=== PATIENT | female | born 1955 | race Caucasian/White ===

== ENCOUNTER 2017-10-04 03:33 | Emergency (ER) | payer BC ==
--- NOTE | 2017-10-04 04:20 | EDM.PDOC ---
<Luis Carlos Grayson - Last Filed: 10/04/17 06:55> ED HPI GENERAL MEDICAL PROBLEM - General Chief Complaint: Respiratory Problem Stated Complaint: DIFFICULTY BREATHING Time Seen by Provider: 10/04/17 03:49 Source of Information: Reports: Patient History Limitations: Reports: No Limitations - History of Present Illness INITIAL COMMENTS - FREE TEXT/NARRATIVE: The patient states that she has had a dry cough on and off for the past 6 weeks. She has not had a fever. No chest pain, palpitations, nausea, vomiting, constipation, or diarrhea. Since that she has been seen at the clinic on 2 occasions, and was prescribed antibiotics both times. A chest x-ray did not find an infiltrate, but did show a "spot" on the lung. The patient was prescribed an albuterol MDI at her second visit about a month ago, and was instructed to use it whenever she coughed. She has been doing that, with no notable improvement in her symptoms. The patient states that she woke around 03:00 this morning with shortness of breath. She states that she had difficulty breathing both in and out. She used her albuterol MDI 3 times, then went outside. Her symptoms resolved within a few minutes. The patient works at [employer], and is exposed to flour dust in the air. She states that she has been working there for about 10 years, under the same conditions. She states that she wears a mask at work, although it is just a facial mask, not a respirator. The patient does not have a PCP. She does not recall when her last general physical exam was. - Related Data Allergies Allergy/AdvReac Type Severity Reaction Status Date / Time codeine Allergy Difficulty Verified 10/04/17 03:42 Breathing peanut Allergy Difficulty Verified 10/04/17 03:42 Breathing tramadol [From Ultram] Allergy Difficulty Verified 10/04/17 03:42 Breathing Home Meds: Home Meds Albuterol [Proventil HFA] 2 inh INH Q4H PRN 10/04/17 [History] Aspirin 81 mg PO DAILY 10/04/17 [History] Benzonatate [Tessalon Perle] 100 mg PO TID PRN #30 capsule 10/04/17 [Rx] Cetirizine [ZyrTEC] 10 mg PO DAILY #30 tab 10/04/17 [Rx] Past Medical History Respiratory History: Reports: PE (, when the patient was in her 20s) - Past Surgical History GI Surgical History: Reports: Lysis of Adhesions Social & Family History - Tobacco Use Smoking Status *Q: Former Smoker Years of Tobacco use: 20 Packs/Tins Daily: 1 Month/Year Tobacco Last Used: "long time ago" - Alcohol Use Alcohol Use History: Yes Alcohol Use Frequency: Socially - Recreational Drug Use Recreational Drug Use: No - Living Situation & Occupation Living situation: Reports: , Alone Occupation: Employed ([employer]) ED ROS GENERAL - Review of Systems Review Of Systems: ROS reveals no pertinent complaints other than HPI. ED EXAM, GENERAL - Physical Exam Exam: See Below Exam Limited By: No Limitations General Appearance: Alert, WD/WN, No Apparent Distress Eye Exam: Bilateral Eye: Normal Inspection Ears: Normal External Exam, Normal Canal, Hearing Grossly Normal, Normal TMs Nose: Normal Inspection, Normal Mucosa, No Blood Throat/Mouth: Normal Inspection, Normal Lips, Normal Teeth, Normal Gums, Normal Voice, No Airway Compromise, Other (Pharyngeal streaking, consistent with postnasal drip) Head: Atraumatic, Normocephalic Neck: Normal Inspection, Supple, Non-Tender, Full Range of Motion. No: Lymphadenopathy (L), Lymphadenopathy (R) Respiratory/Chest: No Respiratory Distress, Lungs Clear, Normal Breath Sounds, No Accessory Muscle Use. No: Decreased Breath Sounds, Crackles, Rhonchi, Wheezing, Prolonged Expiration Cardiovascular: Normal Peripheral Pulses, Regular Rate, Rhythm, No Edema, No Gallop, No JVD, No Murmur, No Rub Peripheral Pulses: 4+: Radial (L), Radial (R) GI/Abdominal: Normal Bowel Sounds, Soft, Non-Tender, No Organomegaly, No Distention, No Abnormal Bruit, No Mass (Female) Exam: Deferred Rectal (Female) Exam: Deferred Back Exam: Normal Inspection, Full Range of Motion, NT Extremities: Normal Inspection, Normal Range of Motion, No Pedal Edema, Normal Capillary Refill Neurological: Alert, Oriented, Normal Cognition, No Motor/Sensory Deficits Psychiatric: Normal Affect Skin Exam: Warm, Dry, Intact, Normal Color, No Rash Course - Vital Signs Last Recorded V/S: Last Vital Signs Temp 36.4 C 10/04/17 03:37 Pulse 88 10/04/17 03:37 Resp 18 10/04/17 03:37 BP 148/87 H 10/04/17 03:37 Pulse Ox 98 10/04/17 03:37 - Orders/Labs/Meds Labs: Laboratory Tests 10/04/17 10/04/17 10/04/17 Range/Units 04:30 04:30 04:30 WBC 8.00 (3.98-10.04) K/mm3 RBC 4.46 (3.98-5.22) M/mm3 Hgb 13.6 (11.2-15.7) gm/L Hct 40.6 (34.1-44.9) % MCV 91.0 (79.4-94.8) fl MCH 30.5 (25.6-32.2) pg MCHC 33.5 (32.2-35.5) g/dl RDW Std Deviation 44.1 (36.4-46.3) fL Plt Count 318 (182-369) K/mm3 MPV 9.9 (9.4-12.3) fl Neutrophils % (Manual) 73 H (40-60) % Band Neutrophils % 0 (0-10) % Lymphocytes % (Manual) 21 (20-40) % Atypical Lymphs % 0 % Monocytes % (Manual) 5 (2-10) % Eosinophils % (Manual) 1 (0.7-5.8) % Basophils % (Manual) 0 L (0.1-1.2) Platelet Estimate Adequate RBC Morph Comment Normal PT (9.5-12.1) SECONDS INR APTT 23 L (24-31) SECONDS D-Dimer, Quantitative 1.41 H (0.19-0.50) mg/L Sodium 141 (136-145) mEq/L Potassium 4.6 (3.5-5.1) mEq/L Chloride 106 (98-107) mEq/L Carbon Dioxide 25 (21-32) mEq/L Anion Gap 14.6 (5-15) BUN 16 (7-18) mg/dL Creatinine 0.9 (0.55-1.02) mg/dL Est Cr Clr Drug Dosing 49.53 mL/min Estimated GFR (MDRD) > 60 (>60) mL/min BUN/Creatinine Ratio 17.8 (14-18) Glucose 118 H (80-115) mg/dL Calcium 9.3 (8.5-10.1) mg/dL Total Bilirubin 0.5 (0.2-1.0) mg/dL AST 13 L (15-37) U/L ALT 22 (14-59) U/L Alkaline Phosphatase 90 (46-116) U/L Total Protein 7.5 (6.4-8.2) g/dl Albumin 3.9 (3.4-5.0) g/dl Globulin 3.6 gm/dL Albumin/Globulin Ratio 1.1 (1-2) 10/04/17 Range/Units 04:30 WBC (3.98-10.04) K/mm3 RBC (3.98-5.22) M/mm3 Hgb (11.2-15.7) gm/L Hct (34.1-44.9) % MCV (79.4-94.8) fl MCH (25.6-32.2) pg MCHC (32.2-35.5) g/dl RDW Std Deviation (36.4-46.3) fL Plt Count (182-369) K/mm3 MPV (9.4-12.3) fl Neutrophils % (Manual) (40-60) % Band Neutrophils % (0-10) % Lymphocytes % (Manual) (20-40) % Atypical Lymphs % % Monocytes % (Manual) (2-10) % Eosinophils % (Manual) (0.7-5.8) % Basophils % (Manual) (0.1-1.2) Platelet Estimate RBC Morph Comment PT 10.0 (9.5-12.1) SECONDS INR 0.92 APTT (24-31) SECONDS D-Dimer, Quantitative (0.19-0.50) mg/L Sodium (136-145) mEq/L Potassium (3.5-5.1) mEq/L Chloride (98-107) mEq/L Carbon Dioxide (21-32) mEq/L Anion Gap (5-15) BUN (7-18) mg/dL Creatinine (0.55-1.02) mg/dL Est Cr Clr Drug Dosing mL/min Estimated GFR (MDRD) (>60) mL/min BUN/Creatinine Ratio (14-18) Glucose (80-115) mg/dL Calcium (8.5-10.1) mg/dL Total Bilirubin (0.2-1.0) mg/dL AST (15-37) U/L ALT (14-59) U/L Alkaline Phosphatase (46-116) U/L Total Protein (6.4-8.2) g/dl Albumin (3.4-5.0) g/dl Globulin gm/dL Albumin/Globulin Ratio (1-2) Meds: Medications Discontinued Medications Generic Name Dose Route Start Last Admin Trade Name Margarito PRN Reason Stop Dose Admin Dexamethasone 10 mg 10/04/17 08:15 10/04/17 08:31 Dexamethasone PO 10/04/17 08:16 10 mg ONETIME ONE Administration Sodium Chloride 1,000 mls @ 150 mls/hr 10/04/17 05:45 10/04/17 05:58 Normal Saline IV 150 mls/hr ASDIRECTED MYRON Administration Sodium Chloride 100 mls @ 4 mls/sec 10/04/17 06:15 10/04/17 06:33 Normal Saline IV 10/04/17 06:16 4 mls/sec ONETIME ONE Administration Iopamidol 100 ml 10/04/17 06:15 10/04/17 06:32 Isovue-370 (76%) IVPUSH 10/04/17 06:16 100 ml ONETIME ONE Administration - Re-Assessments/Exams Free Text/Narrative Re-Assessment/Exam: 10/04/17 04:13 As the patient has been seen at the clinic on 2 occasions, with a recent chest radiograph that did not find infiltrate, and was nevertheless treated with 2 rounds of antibiotics, and her current pulmonary exam is entirely normal, and the patient is saturating 98% on room air, I do not see an indication for a repeat chest radiograph at this time. I have, however, ordered blood work that includes a D-dimer. If elevated, a CT angiogram of the chest may be indicated. If her bloodwork is entirely negative, then I suspect that her symptoms are due to allergic rhinitis with postnasal drip. In that case, I would recommend a nasal steroid spray. 10/04/17 05:45 The patient's D-dimer has returned significantly elevated at 1.41, despite normal renal function. I have ordered a CT angiogram of the chest to evaluate for PE, as well as IV fluid. 10/04/17 07:00 The patient has undergone the CT angiogram, however, the results are still pending. Case discussed with Dr. Lg Cortes, and care of the patient turned over to her at this time, for change of shift. Departure - Departure Disposition: Home, Self-Care 01 Clinical Impression: Cough - Discharge Information Prescriptions: Benzonatate [Tessalon Perle] 100 mg PO TID PRN #30 capsule PRN Reason: Cough Cetirizine [ZyrTEC] 10 mg PO DAILY #30 tab Instructions: Cough, Adult, [id number] Referrals: PCP,Unknown [Ordering Only Provider] - Forms: ED Department Discharge Additional Instructions: 1. Take cetirizine or Janette daily 2. Take tessalon as prescribed as needed for cough 3. Use albuterol inhaler as needed for shortness of breath or cough 4. Follow up with the primary care provider of your choice as soon as possible for further care. Call [phone] if you'd like to schedule with someone here. 5. Return to the Emergency Department if you have difficulty breathing, chest pain, or any other concerning symptoms <Lg Cortes A - Last Filed: 10/04/17 13:17> Course - Re-Assessments/Exams Free Text/Narrative Re-Assessment/Exam: 10/04/17 13:15 CTA chest is negative for PE or other acute abnormality. Reassessed patient. She is breathing comfortably and is completely well appearing and has normal vital signs. She'd like to go home. Discussed return precautions. Departure - Departure Time of Disposition: 08:13
[2017-10-04] MEDS ORDERED: Sodium Chloride 0.9% 1,000 ML IV SCH (05:45)
[2017-10-04] MEDS ORDERED: Sodium Chloride 0.9% 100 ML IV ONE (06:15)
[2017-10-04] MEDS ORDERED: Iopamidol 755 Mg/ML 100 ML Bottle IVPUSH ONE (06:15)
[2017-10-04] MEDS ORDERED: Dexamethasone 4 MG Tab PO ONE (08:15)
--- NOTE | 2017-10-04 10:24 | CT ---
CT chest Technique: Multiple axial sections through the chest were obtained. Intravenous contrast was utilized. Comparison: No previous study. Findings: Pulmonary arteries are well-opacified. No filling defects are seen to indicate pulmonary embolism. Mediastinum and hilar region show no adenopathy or mass. No pericardial thickening is seen. Slightly dilated renal pelves are seen on both sides most likely due to nonvisualized but incidental functional UPJ obstructions. Lungs are clear with no acute parenchymal change. No pleural effusions are seen. Bone window settings shows mild degenerative spurring within the spine. No acute osseous abnormality is identified. Impression: 1. No findings of pulmonary embolism. 2. Other incidental findings as described above. Diagnostic code #2 Agree with preliminary report issued by [facility] ([facility] preliminary report dictated on 10/04/17, 8:48 AM Central Time)
== END 2017-10-04 08:41 | disposition home or self-care (01) ==
LOC: JD.ED 03:33
DX: R05 Cough (principal); Z88.5 Allergy status to narcotic agent; Z91.010 Allergy to peanuts; Z79.82 Long term (current) use of aspirin; Z79.899 Other long term (current) drug therapy; Z87.891 Personal history of nicotine dependence
CPT/HCPCS: 36415; 71275; 80053; 85025; 85379; 85610; 85730; 96360; 96361; 99285; J7030; J7040; J8540; Q9967; 99284

== ENCOUNTER 2017-10-05 17:10 | Emergency (ER) | payer BC ==
[2017-10-05] MEDS ORDERED: Albuterol 0.083% 2.5 MG/3 ML Neb Soln NEB ONE (17:43)
--- NOTE | 2017-10-05 18:43 | EDM.PDOC ---
ED HPI GENERAL MEDICAL PROBLEM - General Chief Complaint: Cardiovascular Problem Stated Complaint: [facility] SENT HER Time Seen by Provider: 10/05/17 17:28 Source of Information: Reports: Patient, RN Notes Reviewed - History of Present Illness INITIAL COMMENTS - FREE TEXT/NARRATIVE: 62 year old female referred to ED with concern about possible pneumonia and elevated trop. She was seen here in the ED yesterday for cough, dyspne, see that record for details. She had labs, had a CT pul angio for elevated D Dimer which was neg. See that record for details. Was seen at clinic this afternoon for follow up. Still coughing, occasional productive of colored phlegm which she has had for 1 to 2 months, 2 prior courses of abx. A D Dimer along with other labs today was elevated at 0.06. She has had no chest pain other than that associated with coughing. No Hx CAD, does not smoke, no recent fever or chills. No hx CAD, diabetes or known renal problems. - Related Data Allergies Allergy/AdvReac Type Severity Reaction Status Date / Time codeine Allergy Difficulty Verified 10/05/17 17:19 Breathing peanut Allergy Difficulty Verified 10/05/17 17:19 Breathing tramadol [From Ultram] Allergy Difficulty Verified 10/05/17 17:19 Breathing Home Meds: Home Meds Albuterol [Proventil HFA] 2 inh INH Q4H PRN 10/04/17 [History] Aspirin 81 mg PO DAILY 10/04/17 [History] Benzonatate [Tessalon Perle] 100 mg PO TID PRN #30 capsule 10/04/17 [Rx] Cetirizine [ZyrTEC] 10 mg PO DAILY #30 tab 10/04/17 [Rx] Doxycycline [Vibramycin] 100 mg PO DAILY #20 tab 10/05/17 [Rx] Past Medical History - Past Health History Medical/Surgical History: Denies Medical/Surgical History HEENT History: Reports: Impaired Vision Other HEENT History: wears eyeglasses Respiratory History: Reports: PE Gastrointestinal History: Reports: Other (See Below) Other Gastrointestinal History: laproscopic surgery. Genitourinary History: Reports: Other (See Below) Other Genitourinary History: prolaped bladder [employer] History: Reports: Musculoskeletal History: Reports: Fracture Neurological History: Reports: MS - Infectious Disease History Infectious Disease History: Reports: Measles - Past Surgical History GI Surgical History: Reports: Lysis of Adhesions Social & Family History - Tobacco Use Smoking Status *Q: Never Smoker Second Hand Smoke Exposure: No - Caffeine Use Caffeine Use: Reports: Coffee, Soda - Recreational Drug Use Recreational Drug Use: No - Living Situation & Occupation Living situation: Reports: , Alone Occupation: Employed ([employer]) ED ROS GENERAL - Review of Systems Review Of Systems: See Below Constitutional: Denies: Fever, Chills, Diaphoresis HEENT: Reports: Sinus Problem (has had a lot of sinus miguel angel, post nasal drainage) Respiratory: Reports: Shortness of Breath (severe yesterday morning, better today, still feels short of breath compared to normal), Wheezing, Cough, Sputum (yellow, green) Cardiovascular: Reports: Chest Pain (with coughing only) GI/Abdominal: Denies: Abdominal Pain, Nausea, Vomiting Musculoskeletal: Denies: Neck Pain, Shoulder Pain, Arm Pain, Back Pain Skin: Reports: No Symptoms Neurological: Reports: No Symptoms ED EXAM, GENERAL - Physical Exam Exam: See Below General Appearance: Alert, No Apparent Distress Eye Exam: Bilateral Eye: PERRL Throat/Mouth: Normal Inspection, Normal Oropharynx Head: Atraumatic. No: Facial Swelling, Facial Tenderness Neck: Supple, Full Range of Motion, Other (no JVD) Respiratory/Chest: No Respiratory Distress, Lungs Clear, Wheezing (mild). No: Rales, Rhonchi Cardiovascular: Regular Rate, Rhythm GI/Abdominal: Soft, Non-Tender Back Exam: No: CVA Tenderness (L), CVA Tenderness (R) Extremities: Normal Inspection. No: Pedal Edema, Leg Pain, Increased Warmth, Redness Neurological: Alert, Oriented, No Motor/Sensory Deficits Skin Exam: Warm, Dry, Normal Color Course - Vital Signs Last Recorded V/S: Last Vital Signs Temp 97.8 F 10/05/17 17:19 Pulse 64 10/05/17 17:19 Resp 18 10/05/17 17:19 BP 149/86 H 10/05/17 17:19 Pulse Ox 95 10/05/17 18:06 - Orders/Labs/Meds Orders: Active Orders 24 hr Category Date Time Status RT Aerosol Therapy [RC] ASDIRECTED Care 10/05/17 17:44 Active Labs: Laboratory Tests 10/05/17 Range/Units 18:35 Troponin I 0.049 (0.00-0.056) ng/mL Meds: Medications Discontinued Medications Generic Name Dose Route Start Last Admin Trade Name Margarito PRN Reason Stop Dose Admin Albuterol 2.5 mg 10/05/17 17:43 10/05/17 18:05 Proventil Neb Soln NEB 10/05/17 17:44 2.5 mg ONETIME ONE Administration Doxycycline Hyclate 100 mg 10/05/17 20:40 10/05/17 20:44 Vibramycin PO 10/05/17 20:41 100 mg ONETIME ONE Administration Prednisone 40 mg 10/05/17 20:39 10/05/17 20:44 Prednisone PO 10/05/17 20:40 40 mg ONETIME ONE Administration - Re-Assessments/Exams Free Text/Narrative Re-Assessment/Exam: 10/05/17 22:10 Neb treatment did help her breathing, sats running 100 percent room air after neb treatment. CXR done at clinic reviewed, it is normal, no infiltrate, cardiomegally, pul congestion or other apparent acute finding. Repeat trop 2 hr after clinic draw came back at .049. With her ongoing bronchitis, sinusitis I am going to prescribe a course of doxycycline, have her take 6 days of prednisone. Have advised her and family this could take 1-2 weeks or more to clear but sx of cough and sinus miguel angel should gradually get better and difficulty breathing should continue to improve quite rapidly. Discharge instr. as documented. Departure - Departure Time of Disposition: 20:54 Disposition: Home, Self-Care 01 Condition: Fair Clinical Impression: Bronchitis, Wheezing-associated respiratory infection Sinusitis Qualifiers: Sinusitis location: maxillary Chronicity: acute Recurrence: non-recurrent Qualified Code(s): J01.00 - Acute maxillary sinusitis, unspecified Prescriptions: Doxycycline [Vibramycin] 100 mg PO DAILY #20 tab Instructions: Acute Bronchitis, Adult Referrals: Sandra Montgomery PA-C [Primary Care Provider] - Forms: ED Department Discharge Additional Instructions: vaporizer or steam as needed, continue to use inhaler at home 3 to 4 times daily, prednisone 40 mg q AM for 3 days than 20 mg q AM for 2 days, doxycycline 100 mg twice daily for 10 days. continue other medications as previously prescribed. Follow up clinic in about 1 week for recheck, return to ED as needed if symptoms worsening in any way. - My Orders Last 24 Hours: My Active Orders 10/05/17 17:44 RT Aerosol Therapy [RC] ASDIRECTED - Assessment/Plan Last 24 Hours: My Active Orders 10/05/17 17:44 RT Aerosol Therapy [RC] ASDIRECTED
[2017-10-05] MEDS ORDERED: predniSONE 20 MG Tab PO ONE (20:39)
[2017-10-05] MEDS ORDERED: Doxycycline 100 MG Cap PO ONE (20:40)
== END 2017-10-05 21:12 | disposition home or self-care (01) ==
LOC: JD.ED 17:10
DX: J40 Bronchitis, not specified as acute or chronic (principal); J01.00 Acute maxillary sinusitis, unspecified; Z88.5 Allergy status to narcotic agent; Z91.010 Allergy to peanuts; Z79.82 Long term (current) use of aspirin; Z79.899 Other long term (current) drug therapy
CPT/HCPCS: 36415; 84484; 94640; 99285; A9270; 99283

== ENCOUNTER 2019-06-29 14:53 | Emergency (ER) | payer BC ==
[2019-06-29] MEDS ORDERED: HYDROmorphone 0.5 MG/0.5 ML Syringe IVPUSH ONE (15:45)
[2019-06-29] MEDS ORDERED: Ondansetron 4 MG/2 ML SDV IVPUSH ONE ×2 (15:45→20:04)
[2019-06-29] MEDS ORDERED: Dexamethasone 10 MG/ML SDV IM ONE (15:45)
[2019-06-29] MEDS ORDERED: Sodium Chloride 0.9% 1,000 ML IV ONE (15:48)
--- NOTE | 2019-06-29 16:01 | EDM.PDOC ---
ED HPI GENERAL MEDICAL PROBLEM - General Chief Complaint: Neck Problem Stated Complaint: HEADACHE/SWOLLEN GLANDS Time Seen by Provider: 06/29/19 15:16 Source of Information: Reports: Patient, RN Notes Reviewed History Limitations: Reports: No Limitations - History of Present Illness INITIAL COMMENTS - FREE TEXT/NARRATIVE: Patient is a 64-year-old female who presents to the ED for the evaluation of a headache, and ongoing swelling in her face and throat. Patient notes she was seen in the clinic on 06/27/2019 for sore tooth on the bottom left side of her mouth. She states she was given a prescription for Augmentin, and has taken it as prescribed, but she is now developed a sore throat, sore jaw, swollen lymph nodes to the left side of her neck, and severe neck pain. She also states that she has been having a headache and has not been able to really eat or sleep much for the last 2 days due to the swelling and pain. She denies any fever, vomiting, diarrhea or nausea. Patient's not been told she is ever had any sort of issues with her thyroid. Neck Pain Score (Numeric/FACES): 3 - Related Data Allergies Allergy/AdvReac Type Severity Reaction Status Date / Time codeine Allergy Difficulty Verified 10/05/17 17:19 Breathing peanut Allergy Difficulty Verified 10/05/17 17:19 Breathing tramadol [From Ultram] Allergy Difficulty Verified 10/05/17 17:19 Breathing Home Meds: Home Meds Albuterol [Proventil HFA] 2 inh INH Q4H PRN 10/04/17 [History] Aspirin 81 mg PO DAILY 10/04/17 [History] Benzonatate [Tessalon Perle] 100 mg PO TID PRN #30 capsule 10/04/17 [Rx] Cetirizine [ZyrTEC] 10 mg PO DAILY #30 tab 10/04/17 [Rx] Doxycycline [Vibramycin] 100 mg PO DAILY #20 tab 10/05/17 [Rx] Past Medical History - Past Health History Medical/Surgical History: Denies Medical/Surgical History HEENT History: Reports: Impaired Vision Other HEENT History: wears eyeglasses Cardiovascular History: Reports: High Cholesterol Respiratory History: Reports: Asthma, PE Gastrointestinal History: Reports: Other (See Below) Other Gastrointestinal History: laproscopic surgery. 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: Musculoskeletal History: Reports: Back Pain, Chronic, Fracture Neurological History: Reports: MS - Infectious Disease History Infectious Disease History: Reports: Chicken Pox, Measles - Past Surgical History GI Surgical History: Reports: Lysis of Adhesions Social & Family History - Family History Family Medical History: Noncontributory - Tobacco Use Smoking Status *Q: Former Smoker Packs/Tins Daily: 15 Used Tobacco, but Quit: Yes Month/Year Tobacco Last Used: 30 yrs ago - Caffeine Use Caffeine Use: Reports: Coffee - Recreational Drug Use Recreational Drug Use: No - Living Situation & Occupation Living situation: Reports: , Alone Occupation: Employed ([employer]) ED ROS GENERAL - Review of Systems Review Of Systems: See Below Constitutional: Denies: Fever, Chills HEENT: Reports: Dental Pain (Left lower jaw), Ear Pain (L ear fullness), Throat Pain, Throat Swelling (L side throat swelling) Respiratory: Denies: Shortness of Breath Cardiovascular: Denies: Chest Pain GI/Abdominal: Denies: Abdominal Pain, Nausea, Vomiting Musculoskeletal: Reports: Neck Pain (Left neck pain) Neurological: Reports: Headache ED EXAM, GENERAL - Physical Exam Exam: See Below Exam Limited By: No Limitations General Appearance: Alert, WD/WN, No Apparent Distress Eye Exam: Bilateral Eye: EOMI, Normal Inspection, PERRL Ears: Normal External Exam, Normal Canal, Hearing Grossly Normal, Normal TMs Nose: Normal Inspection Throat/Mouth: Normal Inspection, Normal Lips, Normal Teeth, Normal Gums, Normal Oropharynx, Normal Voice, No Airway Compromise Head: Atraumatic, Normocephalic Neck: Supple, Limited Range of Motion (d/t pain), Tender Lateral (anteriorly, there is obvious swelling/lump noted to her L anterior neck). No: Lymphadenopathy (L), Lymphadenopathy (R) Respiratory/Chest: No Respiratory Distress, Lungs Clear, Normal Breath Sounds, No Accessory Muscle Use, Chest Non-Tender Cardiovascular: Normal Peripheral Pulses, Regular Rate, Rhythm, No Edema, No Murmur Peripheral Pulses: 3+: Radial (L), Radial (R) Extremities: Normal Inspection, Normal Capillary Refill Neurological: Alert, Oriented, Normal Cognition, No Motor/Sensory Deficits Psychiatric: Normal Affect, Normal Mood Skin Exam: Warm, Dry, Intact, Normal Color, No Rash Course - Vital Signs Last Recorded V/S: Last Vital Signs Temp 99.7 F 06/29/19 15:09 Pulse 95 06/29/19 17:06 Resp 16 06/29/19 15:09 BP 111/61 06/29/19 17:06 Pulse Ox 97 06/29/19 17:06 - Orders/Labs/Meds Orders: Active Orders 24 hr Category Date Time Status Peripheral IV Care [RC] . DIRECTED Care 06/29/19 15:43 Ordered CULTURE STREP A CONFIRMATION [] Stat Lab 06/29/19 16:05 Results STREP SCRN A RAPID W CULT CONF [] Stat Lab 06/29/19 15:43 Ordered Clindamycin Phosphate in D5W [Cleocin in D5W] 900 mg Med 06/29/19 18:54 Ordered Premix Bag 1 bag IV ONETIME Heparin Sodium/D5W [Heparin 25,000 Units in D5W 500 ML] Med 06/29/19 17:53 Ordered 25,000 units in 500 ml IV TITRATE Sodium Chloride 0.9% [Saline Flush] Med 06/29/19 15:43 Ordered 10 ml FLUSH ASDIRECTED PRN Peripheral IV Insertion Adult [OM.PC] Stat Oth 06/29/19 15:43 Ordered Medication Orders Heparin Sodium/Dextrose (Heparin 25,000 Units In D5w 500 Ml) 25,000 units in 500 mls @ 17.146 mls/hr IV TITRATE ONE; Protocol Stop: 06/30/19 23:02 Last Admin: 06/29/19 18:06 Dose: 15 units/kg/hr, 17.146 mls/hr Sodium Chloride (Saline Flush) 10 ml FLUSH ASDIRECTED PRN PRN Reason: Keep Vein Open Last Admin: 06/29/19 18:06 Dose: 10 ml Admin: 06/29/19 16:47 Dose: 10 ml Labs: Laboratory Tests 06/29/19 06/29/19 06/29/19 Range/Units 16:10 16:10 16:10 WBC 11.61 H (3.98-10.04) K/mm3 RBC 4.18 (3.98-5.22) M/mm3 Hgb 12.6 (11.2-15.7) gm/dl Hct 37.8 (34.1-44.9) % MCV 90.4 (79.4-94.8) fl MCH 30.1 (25.6-32.2) pg MCHC 33.3 (32.2-35.5) g/dl RDW Std Deviation 42.8 (36.4-46.3) fL Plt Count 439 H D (182-369) K/mm3 MPV 9.3 L (9.4-12.3) fl Neutrophils % (Manual) 67 H (40-60) % Band Neutrophils % 1 (0-10) % Lymphocytes % (Manual) 21 (20-40) % Atypical Lymphs % 4 % Monocytes % (Manual) 7 (2-10) % Eosinophils % (Manual) 0 L (0.7-5.8) % Basophils % (Manual) 0 L (0.1-1.2) Toxic Granulation Few Platelet Estimate Adequate RBC Morph Comment Normal PT 10.7 (9.7-12.0) SECONDS INR 0.98 APTT 30 D (22-31) SECONDS Sodium 134 L (136-145) mEq/L Potassium 3.9 (3.5-5.1) mEq/L Chloride 99 (98-107) mEq/L Carbon Dioxide 23 (21-32) mEq/L Anion Gap 15.9 H (5-15) BUN 11 (7-18) mg/dL Creatinine 0.9 (0.55-1.02) mg/dL Est Cr Clr Drug Dosing 48.28 mL/min Estimated GFR (MDRD) > 60 (>60) mL/min BUN/Creatinine Ratio 12.2 L (14-18) Glucose 126 H (80-115) mg/dL Calcium 9.6 (8.5-10.1) mg/dL Total Bilirubin 0.6 (0.2-1.0) mg/dL AST 14 L (15-37) U/L ALT 25 (14-59) U/L Alkaline Phosphatase 101 (46-116) U/L C-Reactive Protein 26.2 H* (<1.0) mg/dL Total Protein 8.3 H (6.4-8.2) g/dl Albumin 3.3 L (3.4-5.0) g/dl Globulin 5.0 gm/dL Albumin/Globulin Ratio 0.7 L (1-2) Meds: Medications Generic Name Dose Route Start Last Admin Trade Name Freq PRN Reason Stop Dose Admin Heparin Sodium/Dextrose 25,000 units in 500 mls @ 17.146 mls/hr 06/29/19 17: 53 06/29/19 18:06 Heparin 25,000 Units In D5w 500 Ml IV 06/30/19 23:02 15 units/kg/hr TITRATE ONE 17.146 mls/hr Administration Protocol 15 UNITS/KG/HR Sodium Chloride 10 ml 06/29/19 15:43 06/29/19 18:06 Saline Flush FLUSH 10 ml ASDIRECTED PRN Administration Keep Vein Open Discontinued Medications Generic Name Dose Route Start Last Admin Trade Name Geraldoq PRN Reason Stop Dose Admin Dexamethasone 10 mg 06/29/19 15:45 06/29/19 16:45 Dexamethasone IM 06/29/19 15:46 10 mg ONETIME ONE Administration Heparin Sodium (Porcine) 4,000 units 06/29/19 17:51 06/29/19 18:05 Heparin Sodium IVPUSH 06/29/19 17:52 4,000 units .BOLUS ONE Administration Hydromorphone HCl 0.5 mg 06/29/19 15:45 06/29/19 16:46 Dilaudid IVPUSH 06/29/19 15:46 0.5 mg ONETIME ONE Administration Sodium Chloride 1,000 mls @ 999 mls/hr 06/29/19 15:48 06/29/19 16:45 Normal Saline IV 06/29/19 16:48 999 mls/hr ONETIME ONE Administration Iopamidol 100 ml 06/29/19 16:08 06/29/19 16:40 Isovue-300 (61%) IVPUSH 06/29/19 16:09 80 ml ONETIME ONE Administration Ondansetron HCl 4 mg 06/29/19 15:45 06/29/19 16:46 Zofran IVPUSH 06/29/19 15:46 4 mg ONETIME ONE Administration Sodium Chloride 10 ml 06/29/19 16:08 06/29/19 16:40 Saline Flush FLUSH 06/29/19 16:09 10 ml ONETIME ONE Administration - Re-Assessments/Exams Free Text/Narrative Re-Assessment/Exam: 06/29/19 16:00 Patient presents to the ED for evaluation of a few different complaints. I did order an IV to be placed, CBC, CMP, CRP, strep screen, some IV fluids, 10 mg dexamethasone, 0.5 mg of Dilaudid, and 4 mg of Zofran and a soft tissue neck CT with contrast for further evaluation. 06/29/19 17:[address] demonstrates a thrombosed left jugular vein, this appears to be thrombosed down to the brachiocephalic vein, etiology of this finding is not appreciated on the CT study. There are also mild sinus findings which are believed to be chronic. At this time I have been in contact with [facility] in [place] for cardiovascular referral and possible IR management. The cardiovascular surgeon, Dr. Luis states that this is not a surgical case , and that these can be managed with blood thinners medically, one call at [facility] is trying to contact the hospitalist for possible transfer and management. 06/29/19 17:54 Dr. Cardenas, hospitalist internal controls manager at [facility] accepts the patient for transfer and recommends a 4000 unit bolus of heparin, and then use titration protocol for dosing after this. I did discuss this with Dr. Olvera, and he suggest doing 15 units/kg/h of heparin after the 4000 unit bolus. I did order these to be done, and also PT/INR with a PTT as well for further management. Patient will be transferred to [place] via ambulance. 06/29/19 18:55 Patient's labs did come back, coags are within normal limits, the patient's CRP is elevated at 26.2, discussed these findings again with Dr. Olvera, and he suggested giving her a dose of clindamycin to cover for the suspected dental infection. I did order this at this time. We are having difficulty finding ambulance service to transfer the patient to [place]. Transfer will likely be delayed, however the patient is stable at this time. She can remain in this ER until ambulance service is available to take her. Departure - Departure Time of Disposition: 17:57 Disposition: DC/Tfer to Acute Hospital 02 Condition: Fair Clinical Impression: Jugular vein thrombosis, left - Discharge Information *PRESCRIPTION DRUG MONITORING PROGRAM REVIEWED*: No *COPY OF PRESCRIPTION DRUG MONITORING REPORT IN PATIENT MINNA: No Referrals: Sandra Montgomery PA-C [Primary Care Provider] - Forms: ED Department Discharge Sepsis Event Note - Evaluation Sepsis Screening Result: No Definite Risk - Focused Exam Vital Signs: Vital Signs Temp Pulse Resp BP Pulse Ox 06/29/19 17:06 95 111/61 97 06/29/19 15:09 99.7 F 76 16 139/85 97 Date Exam was Performed: 06/29/19 Time Exam was Performed: 18:55 - My Orders Last 24 Hours: My Active Orders 06/29/19 15:43 Peripheral IV Care [RC] . DIRECTED STREP SCRN A RAPID W CULT CONF [RM] Stat Sodium Chloride 0.9% [Saline Flush] 10 ml FLUSH ASDIRECTED PRN Peripheral IV Insertion Adult [OM.PC] Stat 06/29/19 16:05 CULTURE STREP A CONFIRMATION [RM] Stat 06/29/19 17:53 Heparin Sodium/D5W [Heparin 25,000 Units in D5W 500 ML] 25,000 units in 500 ml IV TITRATE 06/29/19 18:54 Clindamycin Phosphate in D5W [Cleocin in D5W] 900 mg Premix Bag 1 bag IV ONETIME - Assessment/Plan Last 24 Hours: My Active Orders 06/29/19 15:43 Peripheral IV Care [RC] . DIRECTED STREP SCRN A RAPID W CULT CONF [RM] Stat Sodium Chloride 0.9% [Saline Flush] 10 ml FLUSH ASDIRECTED PRN Peripheral IV Insertion Adult [OM.PC] Stat 06/29/19 16:05 CULTURE STREP A CONFIRMATION [RM] Stat 06/29/19 17:53 Heparin Sodium/D5W [Heparin 25,000 Units in D5W 500 ML] 25,000 units in 500 ml IV TITRATE 06/29/19 18:54 Clindamycin Phosphate in D5W [Cleocin in D5W] 900 mg Premix Bag 1 bag IV ONETIME
[2019-06-29] MEDS ORDERED: Iopamidol 612 MG/ML 100 ML Bottle IVPUSH ONE (16:08)
[2019-06-29] MEDS ORDERED: Sodium Chloride 0.9% 10 ML Syringe FLUSH ONE (16:08)
[2019-06-29] MEDS: Sodium Chloride 0.9% 10 ML Syringe FLUSH PRN ×2 (16:47→18:06)
--- NOTE | 2019-06-29 17:01 | CT ---
CT neck Technique: Multiple axial sections were obtained from above the external auditory canals inferiorly to the lung apices. Intravenous contrast was utilized. Findings: Mild mucosal thickening is seen within both maxillary sinuses. Submandibular and parotid salivary glands appear within normal limits. Soft tissue abnormality is identified within the left side of the neck. This appears to represent thrombosis of the left jugular vein. This appears to be thrombosed down to the brachiocephalic vein. Right jugular vein is opacified and patent. Small normal sized lymph nodes are seen. Prevertebral soft tissues are normal. Epiglottis is normal. Bony windows shows mild degenerative change throughout the apophyseal joints within the cervical spine. No additional abnormality is appreciated. Impression: 1. Thrombosed left sided jugular vein. Etiology of this finding is not seen on this study. 2. Mild sinus findings which are believed to be chronic. 3. Nothing acute is otherwise seen on CT study of the neck. Diagnostic code #3 Study was dictated in [place] Standard Time
[2019-06-29] MEDS ORDERED: Heparin Sodium 5,000 Units/ML Vial IVPUSH ONE (17:51)
[2019-06-29] MEDS ORDERED: Heparin Sodium/D5W 25,000 UNITS/500 ML BAG IV ONE (17:53)
[2019-06-29] MEDS ORDERED: Clindamycin Phosphate in D5W 900 MG in Premix Bag 1 BAG IV ONE ×2 (18:54)
[2019-06-29] MEDS ORDERED: HYDROmorphone 1 MG/ML Syringe IVPUSH ONE (20:04)
== END 2019-06-29 20:14 ==
LOC: JD.ED 14:53
DX: I82.C12 Acute embolism and thrombosis of left internal jugular vein (principal); J45.909 Unspecified asthma, uncomplicated; Z88.5 Allergy status to narcotic agent; Z91.018 Allergy to other foods; Z79.82 Long term (current) use of aspirin; Z87.891 Personal history of nicotine dependence
CPT/HCPCS: 36415; 70491; 80053; 85007; 85027; 85610; 85730; 86140; 87081; 87430; 96361; 96365; 96366; 96368; 96372; 96375; 96376; 99285; J1100; J1170; J1644; J2405; J3490; J7030; Q9967; 99284

== ENCOUNTER 2020-01-23 11:50 | Emergency (ER) | payer BC ==
[2020-01-23] MEDS ORDERED: Sodium Chloride 0.9% 10 ML Syringe FLUSH PRN (12:29)
--- NOTE | 2020-01-23 12:50 | EDM.PDOC ---
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 She did not even know she was bleeding. A coworker noticed and said something. She is not entirely sure if she is bleeding from the vagina or rectum. She has no pain now. She said a few days ago she did have some low back pain and was urinating more. She was going to see her provider Lissy Montgomery but she could not get in until next week. She has no fever, chills, cough, chest pain, shortness of breath, abdominal pain, nausea, vomiting or abdominal pain. She has not had a period for years. Onset: Sudden Duration: Hour(s): Severity: Moderate Improves with: Reports: None Worsens with: Reports: None Associated Symptoms: Reports: No Other Symptoms - Related Data Allergies Allergy/AdvReac Type Severity Reaction Status Date / Time codeine Allergy Difficulty Verified 01/23/20 12:02 Breathing peanut Allergy Difficulty Verified 01/23/20 12:02 Breathing tramadol [From Ultram] Allergy Difficulty Verified 01/23/20 12:02 Breathing Home Meds: Home Meds Albuterol [Proventil HFA] 2 inh INH Q4H PRN 10/04/17 [History] Aspirin 81 mg PO DAILY PRN 10/04/17 [History] Cyclobenzaprine [Flexeril] 10 mg PO DAILY 01/23/20 [History] Fluticasone/Vilanterol [Breo Ellipta 200-25 MCG Inhalation Kit] 1 puff INH DAILY 01/23/20 [History] Rivaroxaban [Xarelto] 20 mg PO DAILY 01/23/20 [History] Simvastatin 20 mg PO DAILY 01/23/20 [History] Past Medical History - Past Health History Medical/Surgical History: Denies Medical/Surgical History HEENT History: Reports: Impaired Vision Other HEENT History: wears eyeglasses Cardiovascular History: Reports: High Cholesterol Respiratory History: Reports: Asthma, PE Gastrointestinal History: Reports: Other (See Below) Other Gastrointestinal History: laproscopic surgery. 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: Musculoskeletal History: Reports: Back Pain, Chronic, Fracture Neurological History: Reports: MS - Infectious Disease History Infectious Disease History: Reports: Chicken Pox, Measles - Past Surgical History GI Surgical History: Reports: Lysis of Adhesions Social & Family History - Family History Family Medical History: Noncontributory - Tobacco Use Smoking Status *Q: Never Smoker - Caffeine Use Caffeine Use: Reports: Coffee, Soda, Tea - Recreational Drug Use Recreational Drug Use: No - Living Situation & Occupation Living situation: Reports: , Alone Occupation: Employed ([employer]) ED ROS GENERAL - Review of Systems Review Of Systems: See Below Constitutional: Reports: No Symptoms HEENT: Reports: No Symptoms Respiratory: Reports: No Symptoms Cardiovascular: Reports: No Symptoms Endocrine: Reports: No Symptoms GI/Abdominal: Reports: No Symptoms : Reports: Other (Vaginal bleeding?) Musculoskeletal: Reports: No Symptoms Skin: Reports: No Symptoms ED EXAM, GI/ABD - Physical Exam Exam: See Below Exam Limited By: No Limitations General Appearance: Alert, No Apparent Distress Ears: Normal External Exam Nose: Normal Inspection Head: Atraumatic, Normocephalic Neck: Normal Inspection Respiratory/Chest: No Respiratory Distress, Lungs Clear, Normal Breath Sounds Cardiovascular: Regular Rate, Rhythm, No Edema, No Murmur GI/Abdominal Exam: Soft, Non-Tender, No Organomegaly, No Mass Back Exam: Normal Inspection Extremities: Normal Inspection Course - Vital Signs Last Recorded V/S: Last Vital Signs Temp 97.0 F 01/23/20 11:59 Pulse 109 H 01/23/20 11:59 Resp 14 01/23/20 11:59 BP 150/98 H 01/23/20 11:59 Pulse Ox 97 01/23/20 11:59 - Orders/Labs/Meds Orders: Active Orders 24 hr Category Date Time Status Pelvic Exam, Set Up [RC] ASDIRECTED Care 01/23/20 12:30 Active UA W/MICROSCOPIC [URIN] Stat Lab 01/23/20 12:29 Ordered Labs: Laboratory Tests 01/23/20 01/23/20 Range/Units 13:00 13:00 WBC 6.14 (3.98-10.04) K/mm3 RBC 4.27 (3.98-5.22) M/mm3 Hgb 12.6 (11.2-15.7) gm/dl Hct 38.7 (34.1-44.9) % MCV 90.6 (79.4-94.8) fl MCH 29.5 (25.6-32.2) pg MCHC 32.6 (32.2-35.5) g/dl RDW Std Deviation 45.4 (36.4-46.3) fL Plt Count 327 (182-369) K/mm3 MPV 9.8 (9.4-12.3) fl Neut % (Auto) 54.5 (34.0-71.1) % Lymph % (Auto) 34.7 (19.3-51.7) % [place] % (Auto) 8.6 (4.7-12.5) % Eos % (Auto) 1.5 (0.7-5.8) Baso % (Auto) 0.5 (0.1-1.2) % Neut # (Auto) 3.35 (1.56-6.13) K/mm3 Lymph # (Auto) 2.13 (1.18-3.74) K/mm3 [place] # (Auto) 0.53 H (0.24-0.36) K/mm3 Eos # (Auto) 0.09 (0.04-0.36) K/mm3 Baso # (Auto) 0.03 (0.01-0.08) K/mm3 Sodium 138 (136-145) mEq/L Potassium 4.3 (3.5-5.1) mEq/L Chloride 104 (98-107) mEq/L Carbon Dioxide 28 (21-32) mEq/L Anion Gap 10.3 (5-15) BUN 19 H (7-18) mg/dL Creatinine 0.8 (0.55-1.02) mg/dL Est Cr Clr Drug Dosing 54.31 mL/min Estimated GFR (MDRD) > 60 (>60) mL/min BUN/Creatinine Ratio 23.8 H (14-18) Glucose 99 (80-115) mg/dL Calcium 9.6 (8.5-10.1) mg/dL Total Bilirubin 0.4 (0.2-1.0) mg/dL AST 25 (15-37) U/L ALT 26 (14-59) U/L Alkaline Phosphatase 89 (46-116) U/L Total Protein 7.5 (6.4-8.2) g/dl Albumin 3.8 (3.4-5.0) g/dl Globulin 3.7 gm/dL Albumin/Globulin Ratio 1.0 (1-2) Meds: Medications Discontinued Medications Generic Name Dose Route Start Last Admin Trade Name Freq PRN Reason Stop Dose Admin Sodium Chloride 10 ml 01/23/20 12:29 Saline Flush FLUSH ASDIRECTED PRN Keep Vein Open - Re-Assessments/Exams Free Text/Narrative Re-Assessment/Exam: 01/23/20 12:50 I ordered an IV saline lock, labs, UA and a pelvic exam. 01/23/20 15:38 Her pelvic exam did not show any bleeding. Her labs look good. Her US shows hypoechoic material within the endometrial cavity most likely representing blood. No additional abnormality is appreciated on pelvic US study. She did see Dr Buchanan about a month ago for spotting. He did an endometrial biopsy but he did not get a good enough sample. He would like her to come back on next Tuesday and he will talk to her about a D&C. Departure - Departure Time of Disposition: 15:45 Disposition: Home, Self-Care 01 Condition: Good Clinical Impression: Vaginal bleeding - Discharge Information *PRESCRIPTION DRUG MONITORING PROGRAM REVIEWED*: Not Applicable *COPY OF PRESCRIPTION DRUG MONITORING REPORT IN PATIENT MINNA: Not Applicable Referrals: Gurdeep Martinez MD [Primary Care Provider] - Artis Buchanan MD [Physician] - 1 Week Forms: ED Department Discharge Additional Instructions: Please return if you are soaking more then 1 pad per hour. Follow up with Dr Buchanan on January 28 at 3:30pm. Come early to the labs and get a COVID 19 test. That may be needed if he has to do surgery. Please return if you are worse. Sepsis Event Note (ED) - Evaluation Sepsis Screening Result: No Definite Risk - Focused Exam Vital Signs: Vital Signs Temp Pulse Resp BP Pulse Ox 01/23/20 11:59 97.0 F 109 H 14 150/98 H 97 - My Orders Last 24 Hours: My Active Orders 01/23/20 12:29 UA W/MICROSCOPIC [URIN] Stat 01/23/20 12:30 Pelvic Exam, Set Up [RC] ASDIRECTED - Assessment/Plan Last 24 Hours: My Active Orders 01/23/20 12:29 UA W/MICROSCOPIC [URIN] Stat 01/23/20 12:30 Pelvic Exam, Set Up [RC] ASDIRECTED
--- NOTE | 2020-01-23 15:12 | US ---
Pelvic ultrasound: Multiple real-time images were obtained transabdominally. Comparison: No prior pelvic ultrasound is available. Uterus is anteverted. Hypoechoic material is noted within the endometrial cavity presumably due to blood. No discrete myometrial abnormality is seen. Right and left ovaries show no discrete abnormality. No free fluid is seen. Measurements: Uterus: Length 6.6 cm, AP height 1.8 cm, transverse width 4.6 cm Right ovary: 3.3 x 2.0 x 2.4 cm Left ovary: 2.7 x 1.1 x 2.2 cm Impression: 1. Hypoechoic material within the endometrial cavity most likely representing blood. 2. No additional abnormality is appreciated on pelvic ultrasound study. Diagnostic code #3 This report was dictated in MDT
== END 2020-01-23 16:45 | disposition home or self-care (01) ==
LOC: JD.ED 11:50
DX: N93.9 Abnormal uterine and vaginal bleeding, unspecified (principal); E78.00 Pure hypercholesterolemia, unspecified; J45.909 Unspecified asthma, uncomplicated; Z86.711 Personal history of pulmonary embolism; Z79.82 Long term (current) use of aspirin; Z79.01 Long term (current) use of anticoagulants; Z79.899 Other long term (current) drug therapy; Z88.5 Allergy status to narcotic agent; Z91.010 Allergy to peanuts
CPT/HCPCS: 36415; 76856; 76856-26; 80053; 81001; 85025; 99284-25

== ENCOUNTER 2021-03-24 07:28 | Emergency (ER) | payer BC ==
--- NOTE | 2021-03-24 08:04 | EDM.PDOC ---
ED HPI GENERAL MEDICAL PROBLEM - General Chief Complaint: General Stated Complaint: HEADACHE \ BACK PAIN Time Seen by Provider: 03/24/21 07:59 - History of Present Illness INITIAL COMMENTS - FREE TEXT/NARRATIVE: 65-year-old female presents the emergency room with neck and head pain. This started yesterday progressively got worse then really accelerated to the night. She has had no loss of bowel or bladder control. Patient has had worsening hand and feet numbness over the last several months but this is escalated over the last several weeks. 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 Patient has not had any significant bleeding problems in the past. She has had no loss of bowel or bladder control. She is not aware of any fevers or chills. Headache Pain Score (Numeric/FACES): 10 Back Pain Score (Numeric/FACES): 10 - Related Data Allergies Allergy/AdvReac Type Severity Reaction Status Date / Time codeine Allergy Difficulty Verified 03/24/21 07:57 Breathing peanut Allergy Difficulty Verified 03/24/21 07:57 Breathing tramadol [From Ultram] Allergy Difficulty Verified 03/24/21 07:57 Breathing Home Meds: Home Meds Albuterol [Proventil HFA] 2 inh INH Q4H PRN 10/04/17 [History] Aspirin 81 mg PO ASDIRECTED 10/04/17 [History] Fluticasone/Vilanterol [Breo Ellipta 200-25 MCG Inhalation Kit] 1 puff INH DAILY 01/23/20 [History] Rivaroxaban [Xarelto] 10 mg PO DAILY 01/23/20 [History] Simvastatin 10 mg PO ASDIRECTED 01/23/20 [History] Past Medical History - Past Health History Medical/Surgical History: Denies Medical/Surgical History HEENT History: Reports: Impaired Vision Other HEENT History: wears eyeglasses Cardiovascular History: Reports: High Cholesterol Respiratory History: Reports: Asthma, PE Gastrointestinal History: Reports: Other (See Below) Other Gastrointestinal History: laproscopic surgery. Genitourinary History: Reports: Other (See Below) Other Genitourinary History: prolaped bladder [employer] History: Reports: Musculoskeletal History: Reports: Back Pain, Chronic, Fracture Neurological History: Reports: MS - Infectious Disease History Infectious Disease History: Reports: Chicken Pox, Measles - Past Surgical History GI Surgical History: Reports: Lysis of Adhesions Social & Family History - Family History Family Medical History: No Pertinent Family History - Caffeine Use Caffeine Use: Reports: Coffee, Soda, Tea - Living Situation & Occupation Living situation: Reports: , Alone Occupation: Employed ([employer]) ED ROS GENERAL - Review of Systems Review Of Systems: See Below Constitutional: Reports: No Symptoms HEENT: Reports: No Symptoms Respiratory: Reports: No Symptoms Cardiovascular: Reports: No Symptoms Endocrine: Reports: No Symptoms GI/Abdominal: Reports: No Symptoms : Reports: No Symptoms Musculoskeletal: Reports: Neck Pain, Other (Right upper lower extremity numbness mostly in the distal extremities) Skin: Reports: No Symptoms Neurological: Reports: Headache. Denies: Confusion, Dizziness, Seizure, Syncope Psychiatric: Reports: No Symptoms Hematologic/Lymphatic: Reports: No Symptoms Immunologic: Reports: No Symptoms ED EXAM, GENERAL - Physical Exam Exam: See Below Exam Limited By: No Limitations General Appearance: Alert Eye Exam: Bilateral Eye: Normal Inspection Ears: Normal External Exam, Normal Canal, Hearing Grossly Normal, Normal TMs Nose: Normal Inspection, Normal Mucosa, No Blood Throat/Mouth: Normal Inspection, Normal Lips, Normal Gums, Normal Oropharynx, Normal Voice, No Airway Compromise. No: Normal Teeth Head: Atraumatic, Normocephalic Neck: Other (Significant tenderness with palpation in the midline over the lower cervical region). No: Lymphadenopathy (L), Lymphadenopathy (R) Respiratory/Chest: No Respiratory Distress, Lungs Clear, Normal Breath Sounds Cardiovascular: Regular Rate, Rhythm, No Edema, No Murmur GI/Abdominal: Normal Bowel Sounds, Soft, Non-Tender Back Exam: Normal Inspection, Vertebral Tenderness (She has some vague tenderness in the paraspinous and over the bony structures) Extremities: Normal Inspection, Non-Tender (Tinel's Phalen's and reverse Phalen's negative bilateral upper extremities), Other (Straight leg raises cause muscle tightness in the buttocks and lumbar region does not seem to aggravate any radicular symptoms) Neurological: Alert, Oriented, Normal Cognition Course - Vital Signs Last Recorded V/S: Last Vital Signs Temp 37.0 C 03/24/21 07:55 Pulse 88 03/24/21 07:55 Resp 18 03/24/21 07:55 BP 126/78 10/26/21 07:55 Pulse Ox 94 L 03/24/21 07:55 - Orders/Labs/Meds Labs: Laboratory Tests 03/24/21 03/24/21 03/24/21 Range/Units 08:15 08:25 08:25 WBC 2.91 L (3.98-10.04) K/mm3 RBC 4.25 (3.98-5.22) M/mm3 Hgb 13.0 (11.2-15.7) gm/dl Hct 39.8 (34.1-44.9) % MCV 93.6 (79.4-94.8) fl MCH 30.6 (25.6-32.2) pg MCHC 32.7 (32.2-35.5) g/dl RDW Std Deviation 45.6 (36.4-46.3) fL Plt Count 281 (182-369) K/mm3 MPV 9.6 (9.4-12.3) fl Neut % (Auto) 61.3 (34.0-71.1) % Lymph % (Auto) 26.1 (19.3-51.7) % [place] % (Auto) 11.7 (4.7-12.5) % Eos % (Auto) 0.3 L (0.7-5.8) Baso % (Auto) 0.3 (0.1-1.2) % Neut # (Auto) 1.78 (1.56-6.13) K/mm3 Lymph # (Auto) 0.76 L (1.18-3.74) K/mm3 [place] # (Auto) 0.34 (0.24-0.36) K/mm3 Eos # (Auto) 0.01 L (0.04-0.36) K/mm3 Baso # (Auto) 0.01 (0.01-0.08) K/mm3 PT 10.8 (9.7-12.0) SECONDS INR 0.97 APTT 29.9 (21.7-31.4) SECONDS D-Dimer, Quantitative (0.19-0.50) mg/L Sodium (136-145) mEq/L Potassium (3.5-5.1) mEq/L Chloride (98-107) mEq/L Carbon Dioxide (21-32) mEq/L Anion Gap (5-15) BUN (7-18) mg/dL Creatinine (0.55-1.02) mg/dL Est Cr Clr Drug Dosing mL/min Estimated GFR (MDRD) (>60) mL/min BUN/Creatinine Ratio (14-18) Glucose (70-99) mg/dL Calcium (8.5-10.1) mg/dL Ferritin (8-252) ng/ml Total Bilirubin (0.2-1.0) mg/dL AST (15-37) U/L ALT (14-59) U/L Alkaline Phosphatase (46-116) U/L Lactate Dehydrogenase (81-234) U/L C-Reactive Protein (<1.0) mg/dL Total Protein (6.4-8.2) g/dl Albumin (3.4-5.0) g/dl Globulin gm/dL Albumin/Globulin Ratio (1-2) SARS-CoV-2 RNA (GABRIELLE) Positive H (NEGATIVE) 03/24/21 03/24/21 03/24/21 Range/Units 08:25 08:25 08:25 WBC (3.98-10.04) K/mm3 RBC (3.98-5.22) M/mm3 Hgb (11.2-15.7) gm/dl Hct (34.1-44.9) % MCV (79.4-94.8) fl MCH (25.6-32.2) pg MCHC (32.2-35.5) g/dl RDW Std Deviation (36.4-46.3) fL Plt Count (182-369) K/mm3 MPV (9.4-12.3) fl Neut % (Auto) (34.0-71.1) % Lymph % (Auto) (19.3-51.7) % [place] % (Auto) (4.7-12.5) % Eos % (Auto) (0.7-5.8) Baso % (Auto) (0.1-1.2) % Neut # (Auto) (1.56-6.13) K/mm3 Lymph # (Auto) (1.18-3.74) K/mm3 [place] # (Auto) (0.24-0.36) K/mm3 Eos # (Auto) (0.04-0.36) K/mm3 Baso # (Auto) (0.01-0.08) K/mm3 PT (9.7-12.0) SECONDS INR APTT (21.7-31.4) SECONDS D-Dimer, Quantitative 0.39 (0.19-0.50) mg/L Sodium 137 (136-145) mEq/L Potassium 3.8 (3.5-5.1) mEq/L Chloride 104 (98-107) mEq/L Carbon Dioxide 24 (21-32) mEq/L Anion Gap 12.8 (5-15) BUN 8 (7-18) mg/dL Creatinine 0.9 (0.55-1.02) mg/dL Est Cr Clr Drug Dosing 47.65 mL/min Estimated GFR (MDRD) > 60 (>60) mL/min BUN/Creatinine Ratio 8.9 L (14-18) Glucose 101 H (70-99) mg/dL Calcium 8.6 (8.5-10.1) mg/dL Ferritin (8-252) ng/ml Total Bilirubin 0.3 (0.2-1.0) mg/dL AST 27 (15-37) U/L ALT 23 (14-59) U/L Alkaline Phosphatase 79 (46-116) U/L Lactate Dehydrogenase 210 (81-234) U/L C-Reactive Protein <0.2 (<1.0) mg/dL Total Protein 7.0 (6.4-8.2) g/dl Albumin 3.6 (3.4-5.0) g/dl Globulin 3.4 gm/dL Albumin/Globulin Ratio 1.1 (1-2) SARS-CoV-2 RNA (GABRIELLE) (NEGATIVE) 03/24/21 Range/Units 08:25 WBC (3.98-10.04) K/mm3 RBC (3.98-5.22) M/mm3 Hgb (11.2-15.7) gm/dl Hct (34.1-44.9) % MCV (79.4-94.8) fl MCH (25.6-32.2) pg MCHC (32.2-35.5) g/dl RDW Std Deviation (36.4-46.3) fL Plt Count (182-369) K/mm3 MPV (9.4-12.3) fl Neut % (Auto) (34.0-71.1) % Lymph % (Auto) (19.3-51.7) % [place] % (Auto) (4.7-12.5) % Eos % (Auto) (0.7-5.8) Baso % (Auto) (0.1-1.2) % Neut # (Auto) (1.56-6.13) K/mm3 Lymph # (Auto) (1.18-3.74) K/mm3 [place] # (Auto) (0.24-0.36) K/mm3 Eos # (Auto) (0.04-0.36) K/mm3 Baso # (Auto) (0.01-0.08) K/mm3 PT (9.7-12.0) SECONDS INR APTT (21.7-31.4) SECONDS D-Dimer, Quantitative (0.19-0.50) mg/L Sodium (136-145) mEq/L Potassium (3.5-5.1) mEq/L Chloride (98-107) mEq/L Carbon Dioxide (21-32) mEq/L Anion Gap (5-15) BUN (7-18) mg/dL Creatinine (0.55-1.02) mg/dL Est Cr Clr Drug Dosing mL/min Estimated GFR (MDRD) (>60) mL/min BUN/Creatinine Ratio (14-18) Glucose (70-99) mg/dL Calcium (8.5-10.1) mg/dL Ferritin 166 (8-252) ng/ml Total Bilirubin (0.2-1.0) mg/dL AST (15-37) U/L ALT (14-59) U/L Alkaline Phosphatase (46-116) U/L Lactate Dehydrogenase (81-234) U/L C-Reactive Protein (<1.0) mg/dL Total Protein (6.4-8.2) g/dl Albumin (3.4-5.0) g/dl Globulin gm/dL Albumin/Globulin Ratio (1-2) SARS-CoV-2 RNA (GABRIELLE) (NEGATIVE) Meds: Medications Discontinued Medications Generic Name Dose Route Start Last Admin Trade Name Freq PRN Reason Stop Dose Admin Fentanyl 50 mcg 03/24/21 08:19 03/24/21 08:29 Fentanyl 100 Mcg/2 Ml Sdv IVPUSH 03/24/21 08:20 50 mcg ONETIME ONE Administration Ondansetron HCl 4 mg 03/24/21 08:27 03/24/21 08:27 Ondansetron 4 Mg/2 Ml Sdv IVPUSH 03/24/21 08:28 4 mg ONETIME ONE Administration Ondansetron HCl Confirm 03/24/21 08:27 03/24/21 08:38 Ondansetron 4 Mg/2 Ml Sdv Administered 03/24/21 08:28 Not Given Dose 4 mg .ROUTE .[facility] - Re-Assessments/Exams Free Text/Narrative Re-Assessment/Exam: 03/24/21 09:52 Patient's Covid did come back positive her white count is diminished labs otherwise nondiagnostic I have ordered D-dimer LDH and a ferritin as well as a C-reactive protein. I discussed the positive Covid with the patient's and I have offered monoclonal antibody therapy she will think about it but is sounding like she will declined this. 03/24/21 11:39 Patient does not wish to pursue monoclonal antibody therapy at this time. Ferritin and LDH C-reactive protein and D-dimer are all normal. I did discuss her about the importance of the vaccine after she convalesces from this illness. We will discharge at this time Departure - Departure Time of Disposition: 11:40 Disposition: Home, Self-Care 01 Clinical Impression: COVID-19 - Discharge Information Referrals: Sandra Montgomery PA-C [Primary Care Provider] - Forms: ED Department Discharge Additional Instructions: Return to the emergency room with any questions problems or worsening symptoms. Home isolation for 10 days. As we discussed you should be symptom-free without the aid of medications, for 4 full days before returning to work.. Give strong consideration to the vaccine 6 weeks after your dental symptoms. Sepsis Event Note (ED) - Focused Exam Vital Signs: Vital Signs Temp Pulse Resp BP Pulse Ox 03/24/21 07:55 37.0 C 88 18 126/78 94 L
[2021-03-24] MEDS ORDERED: fentaNYL 100 MCG/2 ML SDV IVPUSH ONE (08:19)
[2021-03-24] MEDS ORDERED: Ondansetron 4 MG/2 ML SDV ONE (08:27)
[2021-03-24] MEDS ORDERED: Ondansetron 4 MG/2 ML SDV IVPUSH ONE (08:27)
--- NOTE | 2021-03-24 09:17 | CT ---
Head CT Technique: Multiple axial sections through the brain were obtained. Intravenous contrast was not utilized. Reconstructed coronal and sagittal images were obtained. Comparison: No prior intracranial imaging is available. Findings: Ventricles along with basal cisterns and sulci over the convexities are mildly prominent. No abnormal parenchymal densities are seen. No evidence of intracranial hemorrhage. No midline shift or mass-effect is seen. Bone window settings were reviewed. Visualized mastoid sinuses are clear. Mild mucosal thickening is seen within the frontal and ethmoid sinuses and sphenoid sinus. No acute calvarial abnormality is appreciated. Impression: 1. Minimal senescent change. 2. Mild mucosal thickening within the paranasal sinuses as described above which most likely represents mild chronic sinusitis. 3. No acute intracranial abnormality is appreciated on noncontrast head CT study. Diagnostic code #2
--- NOTE | 2021-03-24 09:27 | CT ---
CT cervical spine Technique: Multiple axial sections were obtained from above the C1 inferiorly to the mid T2 level. Reconstructed coronal and sagittal images were obtained. Comparison: Prior MRI cervical spine study of 05/05/20. Findings: Degenerative change is noted between the dens and anterior arch of C1. Vertebral body heights and disc spaces are maintained. Diffuse degenerative apophyseal change is seen throughout the cervical spine and visualized upper thoracic spine. There is fusion within the apophyseal joints being seen at C3-4. C3-4 shows moderate left-sided neural foraminal stenosis. Moderate right-sided neural foraminal stenosis appears to be present at C4-5. Moderate left-sided neural foraminal stenosis is noted at C5-6. No central canal stenosis is seen. No acute fracture or subluxation is seen. Visualized lung apices are clear. Impression: 1. Degenerative change as described above. 2. No acute cervical spine abnormality is appreciated on CT cervical spine exam. Diagnostic code #2
== END 2021-03-24 12:10 | disposition home or self-care (01) ==
LOC: JD.ED 07:28
DX: U07.1 COVID-19 (principal); E78.00 Pure hypercholesterolemia, unspecified; J45.909 Unspecified asthma, uncomplicated; G35 Multiple sclerosis; Z88.5 Allergy status to narcotic agent; Z91.010 Allergy to peanuts; Z79.82 Long term (current) use of aspirin; Z79.899 Other long term (current) drug therapy; Z86.711 Personal history of pulmonary embolism; Z79.01 Long term (current) use of anticoagulants
CPT/HCPCS: 36415; 70450; 72125; 80053; 82728; 83615; 85025; 85379; 85610; 85730; 86140; 87635; 96374; 96375; 99284; J2405; J3010; U0002